=== PATIENT | female | born 2000 | race American Indian/Alaskan Native ===

== ENCOUNTER 2019-02-04 14:29 | Inpatient (IN) | payer MEDICAID ==
[2019-02-04] MEDS ORDERED: LACTATED RINGERS 1,000 ML ONE (15:00)
[2019-02-04] MEDS ORDERED: PROMETHAZINE 25 MG RECT SUPP PR PRN ×2 (15:04→23:15)
[2019-02-04] MEDS ORDERED: BUTORPHANOL 2 MG/1 ML INJ IV PRN (15:04)
[2019-02-04] MEDS ORDERED: ePHEDrine SULFATE 50 MG/1 ML INJ IV PRN ×2 (15:04→17:58)
[2019-02-04] MEDS ORDERED: TERBUTALINE 1 MG/1 ML INJ SUB-Q PRN (15:04)
[2019-02-04] MEDS ORDERED: TERBUTALINE 1 MG/1 ML INJ IVP PRN (15:04)
[2019-02-04] MEDS ORDERED: ONDANSETRON 4 MG/2 ML INJ IV PRN ×2 (15:04→23:15)
[2019-02-04] MEDS ORDERED: LIDOCAINE (2%) 20 MG/1 ML VIAL 20 ML MDV INFILTRATI ONE (15:04)
[2019-02-04] MEDS ORDERED: fentaNYL 100 MCG/2 ML INJ IV PRN (15:04)
[2019-02-04] MEDS ORDERED: MINERAL OIL 30 ML ORAL LIQD PO PRN (15:04)
[2019-02-04] MEDS ORDERED: NALOXONE 0.4 MG/1 ML INJ IV PRN ×2 (15:04→23:15)
--- NOTE | 2019-02-04 15:14 | History and Physical Report ---
History of Present Illness Date of examination: 02/04/19 Date of admission: Here for contractions Chief complaint: contractions History of present illness: This is a 18 yo at 40 weeks her3e for contractions. patient noted to be 4cm. GBS neg. Hx of chlamydia and gonorrhea. Marva neg Past History Past Medical History: no pertinent history Past Surgical History: no surgical history Family/Genetic History: none Social history: no significant social history, single. denies: smoking, alcohol abuse, prescription drug abuse - Obstetrical History Expected Date of Delivery: 01/30/19 Actual Gestation: 40 Week(s) 5 Day(s) : 1 Para: 0 Hx # Term Pregnancies: 0 Number of Pregnancies: 0 Spontaneous Abortions: 0 Induced : 0 Number of Living Children: 1 Medications and Allergies Allergies Allergy/AdvReac Type Severity Reaction Status Date / Time No Known Allergies Allergy Unverified 02/02/19 07:59 Home Medications Medication Instructions Recorded Confirmed Last Taken Type No.137/Iron/Folic Acd 1 each PO DAILY 02/04/19 02/04/19 02/04/19 History [[facility] Tablet] Active Meds: Active Medications Butorphanol Tartrate (Stadol) 1 mg IV Q2H PRN PRN Reason: Pain, Moderate (4-6) Ephedrine Sulfate (Ephedrine Sulfate) 10 mg IV Q2M PRN PRN Reason: Hypotension Fentanyl (Sublimaze) 100 mcg IV Q2H PRN PRN Reason: Labor Pain Oxytocin/Sodium Chloride (Pitocin/Ns 20 Unit/1000ml Drip) 20 units in 1,000 mls @ 125 mls/hr IV DIRECT PIERRE Oxytocin/Sodium Chloride (Pitocin/Ns 30 Unit/500ml) 30 units in 500 mls @ 1 mls/hr IV TITR PIERRE; Protocol Oxytocin/Sodium Chloride (Pitocin/Ns 30 Unit/500ml) 30 units in 500 mls @ 0 mls/hr IV TITR PIERRE; Protocol Lactated Ringer's (Lactated Ringers) 1,000 mls @ 125 mls/hr IV DIRECT PIERRE Lidocaine (Xylocaine 2%) 20 ml INFILTRATI ONCE ONE Stop: 02/04/19 15:05 Mineral Oil (Mineral Oil) 30 ml PO QHS PRN PRN Reason: Constipation Naloxone HCl (Naloxone) 0.1 mg IV Q2MIN PRN PRN Reason: Res Rate </= 8 or 02 SAT < 92% Ondansetron HCl (Zofran) 4 mg IV Q8H PRN PRN Reason: Nausea And Vomiting Promethazine HCl (Phenergan) 25 mg OK Q6H PRN PRN Reason: N/V if unable to take po Terbutaline Sulfate (Brethine) 0.25 mg SUB-Q ONCE PRN PRN Reason: Hyperstimulation/Hypertonicity Terbutaline Sulfate (Brethine) 0.25 mg IVP ONCE PRN PRN Reason: Hyperstimulation/Hypertonicity Review of Systems All systems: negative - Vital Signs Vital signs: Vital Signs Pulse BP Pulse Ox 97 H 132/81 98 02/04/19 14:51 02/04/19 14:51 02/04/19 14:51 Temp Pulse Resp BP Pulse Ox 78 132/81 100 02/04/19 15:06 02/04/19 14:51 02/04/19 15:06 - Physical Exam Breasts: Positive: normal Cardiovascular: Regular rate, Normal S1 Lungs: Positive: Clear to auscultation, Normal air movement Abdomen: Positive: normal appearance, soft, normal bowel sounds. Negative: distention, tenderness, guarding Genitourinary (Female): Positive: normal external genitalia, normal perenium Vagina: Positive: normal moisture Uterus: Positive: normal size, normal contour Anus/Rectum: Positive: normal perianal skin Extremities: Positive: normal Deep Tendon Reflex Grade: Normal +2 - Obstetrical FHR: category 1 Cervical Dilatation: 4 Uterine Contraction Pattern: Regular Uterine Tone Measurement Phase: Contraction Uterine Contraction Intensity: Moderate Results All other labs normal. Assessment and Plan A/P HD#1 IUP 40+5 weeks GBS neg Active labor IVF, labs offer epidural expect vaginal delivery
[2019-02-04 15:38] LABS: Basophils % (Auto) 0.3 % (0.0-1.8); Eosinophils # (Auto) 0.2 K/mm3 (0.0-0.4); Eosinophils % (Auto) 2.1 % (0.0-4.3); Hemoglobin 13.4 gm/dl (10.1-14.3); Lymphocytes # (Auto) 1.2 K/mm3 (1.2-5.4); Lymphocytes % (Auto) 12.8 % (13.4-35.0); Mean Corpuscular HGB Conc 34 % (30-34); Mean Corpuscular Volume 92 fl (79-97); Monocytes # (Auto) 0.9 K/mm3 (0.0-0.8); Monocytes % (Auto) 10.2 % (0.0-7.3); Red Blood Count 4.32 M/mm3 (3.65-5.03); Red Cell Distribution Width 13.9 % (13.2-15.2)
[2019-02-04 15:41] LABS: Platelet Count 172 K/mm3 (140-440)
[2019-02-04] MEDS ORDERED: OXYTOCIN 20 UNIT/1000ML DRIP 20 UNITS/1,000 ML BAG IV SCH (16:00)
[2019-02-04] MEDS ORDERED: LACTATED RINGERS 1,000 ML IV SCH (16:00)
[2019-02-04] MEDS ORDERED: OXYTOCIN DRIP 30 UNITS/500 ML BAG IV SCH ×2 (16:00)
--- NOTE | 2019-02-04 17:57 | Anesthesia Consultation ---
Anesthesia Consult and Med Hx Date of service: 02/04/19 - Airway Anesthetic Teeth Evaluation: Good ROM Head & Neck: Adequate Mental/Hyoid Distance: Adequate Mallampati Class: Class II Intubation Access Assessment: Good - Pulmonary Exam CTA: Yes - Cardiac Exam Cardiac Exam: RRR - Pre-Operative Health Status ASA Pre-Surgery Classification: ASA2, Emergency Proposed Anesthetic Plan: Epidural - Pulmonary Hx Asthma: No COPD: No Hx Pneumonia: No - Cardiovascular System Hx Hypertension: No - Central Nervous System Hx Seizures: No Hx Psychiatric Problems: No - Endocrine Hx Renal Disease: No Hx End Stage Renal Disease: No Hx Hypothyroidism: No Hx Hyperthyroidism: No - Hematic Hx Anemia: No Hx Sickle Cell Disease: No - Other Systems Hx Alcohol Use: No
[2019-02-04] MEDS ORDERED: NALOXONE 2 MG/2 ML INJ IV PRN (17:58)
[2019-02-04] MEDS ORDERED: fentaNYL-BUPIV 2 MCG/ML-0.125% 200 MCG/100 ML BAG EPIDURAL SCH ×2 (18:00→23:45)
[2019-02-04] MEDS ORDERED: BUPIVACAINE/PF (0.25%) 2.5 MG/ML 10 ML VIAL INFILTRATI ONE (18:41)
[2019-02-04] MEDS ORDERED: METOCLOPRAMIDE 10 MG/2 ML INJ IV NR (21:35)
[2019-02-04] MEDS ORDERED: FAMOTIDINE 20 MG/2 ML INJ IV ONE (21:35)
[2019-02-04] MEDS ORDERED: ceFAZolin/STERILE WATER 2 GM/20 ML SYRINGE IV NR (21:35)
[2019-02-04] MEDS ORDERED: BICITRA ORAL LIQD 30ML PO ONE (21:35)
[2019-02-04] MEDS ORDERED: ceFAZolin/Water 2 GM/20 ML 2 GM/20 ML SYRINGE IV ONE (21:35)
[2019-02-04] MEDS ORDERED: METOCLOPRAMIDE 10 MG/2 ML INJ ONE (21:36)
[2019-02-04] MEDS ORDERED: BICITRA ORAL LIQD 30ML ONE (21:36)
[2019-02-04] MEDS ORDERED: LIDOCAINE 2%/EPINEPHRINE 1:200,000 VIAL (20 ML) INFILTRATI ONE (21:40)
[2019-02-04] MEDS ORDERED: DEXMEDETOMIDINE 200 MCG/2 ML VIAL IV ONE (21:44)
[2019-02-04] MEDS ORDERED: ONDANSETRON 4 MG/2 ML INJ ONE (22:18)
[2019-02-04] MEDS ORDERED: KETOROLAC 30 MG/1 ML INJ ONE (22:18)
[2019-02-04] MEDS ORDERED: diphenhydrAMINE 50 MG/ML VIAL ONE (22:18)
[2019-02-04] MEDS ORDERED: HYDROmorphone 1 MG/1 ML INJ ONE (22:59)
[2019-02-04] MEDS ORDERED: HYDROmorphone 1 MG/1 ML INJ IV PRN (23:15)
[2019-02-04] MEDS ORDERED: PROMETHAZINE 25 MG TAB PO PRN (23:15)
--- NOTE | 2019-02-04 23:15 | Post Anesthesia Evaluation ---
- Post Anesthesia Evaluation Patient Participated: Yes Airway Patent: Yes Stable Respiratory Function: Yes Nausea/Vomiting: No Temp > 96.8F: Yes Pain Manageable: Yes Adequeate Hydration: Yes Anesthesia Complications: No Block Receding Appropriately: Yes Patient on Ventilator: No
--- NOTE | 2019-02-04 23:15 | Anesthesia Day of Surgery ---
Anesthesia Day of Surgery - Day of Surgery Patient Examined: Yes Patient H&P Reviewed: Yes Patient is NPO: Yes
--- NOTE | 2019-02-04 23:25 | Procedure Note ---
OB Delivery Note - Delivery Date of Delivery: 02/04/19 Surgeon: DENNISE MOSQUERA Estimated blood loss: other (700cc) - Section Preop diagnosis: nonreassuring FHR tracing Postop diagnosis: same section procedure: section Disposition: PACU Complications: none Narrative: see op note - A at 1 minute: 8 at 5 minutes: 9 Infant Gender: Male (9 pounds and 4 oz)
--- NOTE | 2019-02-04 23:29 | Operative Report ---
Operative Report Operative Report: DATE OF OPERATION: 02/04/19 PREOPERATIVE DIAGNOSES: 1. Intrauterine gestation at 40 weeks, in active labor, second stage. 2. NRFHT 3. Meconium POSTOPERATIVE DIAGNOSES: 1. Intrauterine gestation at 40 weeks, in active labor, second stage. 2. NRFHT 3. Meconium 4. Delivery of viable, pwlkr-ynj-svnvljzzpth-age male infant. OPERATION PERFORMED: Primary low transverse section. SURGEON: Chelsey Cantu MD ANESTHESIA: Epidural. COMPLICATIONS: None. ESTIMATED BLOOD LOSS: 700 mL. DRAINS: Dillard catheter to the bladder. SPECIMENS TO PATHOLOGY: Cord blood for routine testing. OPERATIVE FINDINGS: A viable male with Apgars of 8 and 9 and birthweight of 9 pounds 4 ounces was delivered from a cephalic presentation, persistent occiput posterior position. There was marked caput and molding present on the head. The cord contained 3 vessels. There was normal anterior fundal placenta. The amniotic fluid was clear. The uterus, fallopian tubes and ovaries were normal. DESCRIPTION OF OPERATION: The patient was brought to the operating suite in stable condition with epidural anesthesia on board and an indwelling catheter in place in the bladder. The patient was placed supine on the operating room table and rolled to her left side with a wedge. The abdomen was prepped and draped in standard fashion for section. After testing with forceps to assure an adequate anesthetic level, the surgery was commenced. We had counseled the patient extensively regarding the risks of the surgery including but not limited to stroke, embolus, phlebitis, pain, infection, hemorrhage, as well as injury to the infant and the internal organs such as the bowel, bladder, blood vessels, nerves, kidneys, ureters and pelvic organs. The patient was aware of the postoperative morbidity issues and recovery timeframes. The patient was aware she can form adhesions, which can result in obstruction of loop of bowel or ureter or chronic pain. She was aware that should she have hemorrhage and require blood transfusion, there was a small chance for exposure to hepatitis or HIV disease. With the scalpel, a Pfannenstiel skin incision was made. Dissection was carried down sharply through the subcutaneous tissues and fascia in a transverse plane with the scalpel, electrocautery and curved Camargo scissors. The fascia was sharply freed up superiorly and inferiorly from the underlying rectus muscles, which were bluntly and sharply divided. The peritoneum was entered carefully in a clear space with a curved hemostat. The peritoneal incision was then extended vertically with Metzenbaum scissors. A retractor and bladder blade were placed. A bladder flap was created by incising transversely through the peritoneum and vesicouterine fold and then bluntly dissecting the bladder distally. With the scalpel, a low transverse hysterotomy was commenced. The serosa and myometrium were scored with the scalpel. The uterine cavity was actually entered bluntly with a curved hemostat. The uterine incision was then extended laterally with the test operator's fingers. An intrauterine hand was placed and the head of the was brought up out of the pelvis into the uterine incision. With fundal pressure, he was delivered without difficulty. The nasopharynx and oropharynx were suctioned. The cord was doubly clamped and transected. The was then handed off to the nursery personnel. Apgars were good at 8 and 9. A cord pH was obtained, which subsequently revealed a normal value. Further cord blood was collected for routine testing. Intravenous Pitocin and antibiotics were administered. The placenta was manually removed. The uterine cavity was then curetted with a dry sponge and freed of the remaining membranes. The edges of the uterine incision were grasped with Torres clamps. With the massage and the Pitocin, the uterus began to firm up normally. The uterine incision was then closed in 2 layers of 0 Vicryl sutures. The first suture was placed to the endometrium and myometrium. The second suture was placed through the endopelvic fascia and also reincorporated the bladder flap peritoneum. Peritoneal lavage was then performed. The pelvis and gutters were irrigated and suctioned and cleared of all blood and clots and amniotic fluid. The uterine incision was reinspected to assure hemostasis. The uterus, tubes and ovaries were inspected and were normal. Once we were satisfied with the hemostasis, attention was turned to closure of the abdominal incision. The peritoneum, muscles and fascia were closed in layers using 0-Vicryl sutures. The subcutaneous tissue was closed with 3-0 plain sutures. The skin was closed with a subcuticular suture of 4-0 Vicryl followed by benzoin, Steri-Strips and a Telfa dressing. The patient was moved to the ecovery room in stable condition with the Dillard catheter draining clear urine. Instruments, sponge and needle counts were reported as correct. Estimated blood loss was 700 mL. There were no complications.
[2019-02-05] MEDS: HYDROmorphone 1 MG/1 ML INJ IV PRN ×2 (01:38→07:26)
[2019-02-05] MEDS ORDERED: SENNOSIDES 8.6 MG TAB PO PRN (08:56)
[2019-02-05] MEDS ORDERED: ACETAMINOPHEN 325 MG TAB PO PRN (08:56)
[2019-02-05] MEDS ORDERED: MORPHINE 2 MG/1 ML INJ IV PRN (08:56)
[2019-02-05] MEDS ORDERED: LANOLIN/ZINC/DIMETHICONE (LANSINOH) 7 GM TP PRN (08:56)
[2019-02-05] MEDS ORDERED: HYDROCORTISONE 25 MG RECTAL SUPP PR PRN (08:56)
[2019-02-05] MEDS ORDERED: NALOXONE 0.4 MG/1 ML INJ IV PRN (08:56)
[2019-02-05] MEDS ORDERED: MORPHINE 4 MG/1 ML INJ IV PRN (08:56)
[2019-02-05] MEDS ORDERED: MAGNESIUM HYDROXIDE (MOM) ORAL LIQD UDC PO PRN (08:56)
[2019-02-05] MEDS ORDERED: SIMETHICONE 80 MG CHEW TAB PO PRN (08:56)
[2019-02-05] MEDS ORDERED: WITCH HAZEL/ GLYCERIN PAD TP PRN (08:56)
[2019-02-05] MEDS ORDERED: HYDROcodone/ACETAMINOPHEN 5-325 MG TAB PO PRN (08:56)
[2019-02-05] MEDS ORDERED: KETOROLAC 30 MG/1 ML INJ IV PRN ×2 (08:56)
[2019-02-05] MEDS ORDERED: OXYTOCIN 20 UNIT/1000ML DRIP 20 UNITS/1,000 ML BAG IV SCH (09:00)
--- NOTE | 2019-02-05 11:27 | Progress Note ---
Assessment and Plan A/P POD 1 NRFHT doing well VSS routine PP care Subjective - Subjective Date of service: 02/05/19 Principal diagnosis: s/p for NRFHT Interval history: This is a 18 yo at 40 weeks her3e for contractions. patient noted to be 4cm. GBS neg. Hx of chlamydia and gonorrhea. Marva neg Patient reports: appetite normal, voiding normally, pain well controlled, flatus [place]: doing well Objective - Vital Signs Latest vital signs: Vital Signs Temp Pulse Resp BP Pulse Ox 02/05/19 07:27 99.3 F 85 16 118/81 97 02/05/19 05:31 98.5 F 81 18 108/71 97 02/05/19 01:45 98.9 F 87 18 114/61 97 02/05/19 00:15 99.5 F 86 17 119/59 98 02/05/19 00:05 82 17 114/68 98 02/04/19 23:50 80 13 115/67 99 02/04/19 23:35 113 H 18 115/80 100 02/04/19 23:25 82 13 119/63 100 02/04/19 23:20 89 11 L 120/73 100 02/04/19 23:15 99.4 F 78 12 116/62 100 02/04/19 23:10 99.4 F 72 16 118/48 100 02/04/19 21:40 76 84 02/04/19 21:35 125 H 97 02/04/19 21:30 87 96 02/04/19 21:28 67 118/71 02/04/19 21:25 63 96 02/04/19 21:24 51 L 73 L 02/04/19 21:19 64 100 02/04/19 21:16 87 45 L 02/04/19 21:14 68 100 02/04/19 21:09 73 100 02/04/19 21:00 68 100 02/04/19 20:59 74 87 02/04/19 20:56 75 104/68 02/04/19 20:55 70 100 02/04/19 20:50 73 100 02/04/19 20:45 74 100 02/04/19 20:40 70 100 02/04/19 20:35 75 100 02/04/19 20:30 74 100 02/04/19 20:27 70 101/60 89 02/04/19 20:25 68 100 02/04/19 20:20 66 100 02/04/19 20:18 54 L 90 02/04/19 20:15 78 99 02/04/19 20:10 99 H 100 02/04/19 20:05 97 H 100 02/04/19 20:00 69 100 02/04/19 19:57 72 112/69 02/04/19 19:55 69 100 02/04/19 19:50 86 99 02/04/19 19:45 80 100 02/04/19 19:40 76 100 02/04/19 19:34 72 100 02/04/19 19:29 80 100 02/04/19 19:26 83 120/69 02/04/19 19:24 82 121/69 100 02/04/19 19:22 75 124/74 02/04/19 19:20 82 131/83 02/04/19 19:19 89 100 02/04/19 19:18 89 125/89 02/04/19 19:16 83 117/81 02/04/19 19:14 85 121/80 100 02/04/19 19:12 74 122/79 02/04/19 19:10 77 118/77 02/04/19 19:09 79 99 02/04/19 19:08 76 129/74 02/04/19 19:06 91 H 139/82 02/04/19 19:04 85 137/79 99 02/04/19 19:02 74 127/71 02/04/19 19:00 76 125/74 02/04/19 18:59 83 99 02/04/19 18:58 84 132/85 02/04/19 18:56 83 124/79 02/04/19 18:55 98.3 F 14 02/04/19 18:54 79 88 02/04/19 18:51 91 02/04/19 18:49 92 H 100 02/04/19 18:47 83 141/87 100 02/04/19 17:22 86 117/77 02/04/19 16:54 98.1 F 16 02/04/19 15:41 88 100 02/04/19 15:36 100 H 100 19 15:31 93 H 100 02/04/19 15:26 94 H 100 02/04/19 15:21 90 100 02/04/19 15:16 92 H 100 02/04/19 15:11 92 H 100 02/04/19 15:06 78 100 02/04/19 15:01 94 H 100 02/04/19 14:56 92 H 99 02/04/19 14:51 97 H 132/81 98 Intake and Output 02/04/19 02/05/19 02/05/19 23:59 07:59 15:59 Intake Total 1500 240 480 Output Total 350 1000 Balance 1150 240 -520 Intake: IV 1500 Oral 240 480 Output: Urine 350 1000 Indwelling Catheter 1000 Uretheral (Dillard) 50 Other: Total, Intake Amount 120 480 Total, Output Amount 400 Estimated Blood Loss 700 - Exam Breasts: Present: normal Cardiovascular: Present: Regular rate, Normal S1 Lungs: Present: Clear to auscultation, Normal air movement Abdomen: Present: normal appearance, soft, normal bowel sounds. Absent: distention, tenderness, guarding Vulva: both: normal Uterus: Present: normal, firm, fundal height below umbilicus. Absent: bogginess, tenderness Extremities: Present: normal Deep Tendon Reflex Grade: Normal +2 Incision: Present: normal, dry, intact - Labs Labs: Abnormal lab results 02/04/19 Range/Units 15:15 Lymph % (Auto) 12.8 L (13.4-35.0) % [place] % (Auto) 10.2 H (0.0-7.3) % [place] # 0.9 H (0.0-0.8) K/mm3 Seg Neutrophils % 74.6 H (40.0-70.0) %
[2019-02-05] MEDS: FERROUS SULFATE 325 MG TAB PO SCH (11:28)
[2019-02-05] MEDS: PRENATAL VIT27-FE FUMARATE-FOLIC ACID VIT TAB PO SCH (11:28)
[2019-02-05] MEDS: oxyCODONE /ACETAMINOPHEN 5-325MG TAB PO PRN ×2 (13:09→20:11)
[2019-02-05] MEDS: IBUPROFEN 800 MG TAB PO PRN (15:44)
[2019-02-05 20:34] LABS: Hematocrit 33.2 % (30.3-42.9); Hemoglobin 11.3 gm/dl (10.1-14.3)
[2019-02-06] MEDS: IBUPROFEN 800 MG TAB PO PRN (00:29)
[2019-02-06] MEDS: oxyCODONE /ACETAMINOPHEN 5-325MG TAB PO PRN ×3 (02:35→19:49)
[2019-02-06] MEDS ORDERED: MEASLES, MUMPS & RUBELLA 12,500 UNIT/0.5 ML VACCINE SUB-Q ONE (08:57)
[2019-02-06] MEDS ORDERED: TETANUS,DIPH,PERTUSS(ACELL) VACCINE 0.5 ML SYRINGE IM ONE (08:57)
--- NOTE | 2019-02-06 09:33 | Progress Note ---
Assessment and Plan A/P POD 2 NRFHT doing well VSS routine PP care consider d/c home tomorrow Subjective - Subjective Date of service: 02/06/19 Principal diagnosis: s/p for NRFHT Interval history: This is a 18 yo at 40 weeks her3e for contractions. patient noted to be 4cm. GBS neg. Hx of chlamydia and gonorrhea. Marva neg Patient reports: appetite normal, voiding normally, pain well controlled, flatu s, ambulating normally : doing well Objective - Vital Signs Latest vital signs: Vital Signs Temp Pulse Resp BP Pulse Ox 02/06/19 07:25 98.0 F 76 20 123/57 96 02/05/19 22:44 98.4 F 72 20 100/57 100 02/05/19 20:11 18 02/05/19 16:11 98.3 F 92 H 20 113/73 94 02/05/19 11:42 99.7 F H 94 H 20 113/73 97 Intake and Output 02/05/19 02/06/19 02/06/19 23:59 07:59 15:59 Intake Total 600 240 Output Total 1000 Balance -400 240 Intake: Oral 600 240 Output: Urine 1000 Void 1000 Other: Total, Intake Amount 480 240 Total, Output Amount 700 # Voids Void 1 1 - Exam Breasts: Present: normal Cardiovascular: Present: Regular rate, Normal S1 Lungs: Present: Clear to auscultation, Normal air movement Abdomen: Present: normal appearance, soft, normal bowel sounds. Absent: distention, tenderness, guarding Vulva: both: normal Uterus: Present: normal, firm, fundal height below umbilicus. Absent: bogginess, tenderness Extremities: Present: normal Deep Tendon Reflex Grade: Dull/Diminished +1 Incision: Present: normal, intact
[2019-02-06] MEDS: FERROUS SULFATE 325 MG TAB PO SCH (12:53)
[2019-02-06] MEDS: PRENATAL VIT27-FE FUMARATE-FOLIC ACID VIT TAB PO SCH (18:03)
[2019-02-07] MEDS: IBUPROFEN 800 MG TAB PO PRN ×2 (00:23→06:26)
[2019-02-07] MEDS: FERROUS SULFATE 325 MG TAB PO SCH (08:28)
--- NOTE | 2019-02-07 08:31 | Progress Note ---
Assessment and Plan A: POD#3 s/p primary section at term P: Discharge today with follow up in 2 weeks for incision check Subjective - Subjective Date of service: 02/07/19 Principal diagnosis: s/p primary Interval history: No issues overnight. Patient reports: appetite normal, voiding normally, pain well controlled, flatus, ambulating normally, no bowel movement : doing well Objective - Vital Signs Latest vital signs: Vital Signs Temp Pulse Resp BP Pulse Ox 02/07/19 02:06 98.6 F 95 H 20 121/49 98 02/06/19 15:40 99.2 F 102 H 20 135/71 98 Intake and Output 02/06/19 02/07/19 02/07/19 22:59 06:59 14:59 Intake Total 240 Balance 240 Intake: Oral 240 Other: Total, Intake Amount 240 - Exam Breasts: Present: deferred Cardiovascular: Present: Regular rate Lungs: Present: Clear to auscultation Abdomen: Present: soft, normal bowel sounds. Absent: tenderness Uterus: Present: fundal height below umbilicus Extremities: Present: edema (trace) Incision: Present: intact
--- NOTE | 2019-02-07 08:34 | Discharge Summary ---
Providers - Providers Date of Admission: 02/04/19 16:10 Date of discharge: 02/07/19 Attending physician: DENNISE MOSQUERA MD Primary care physician: JOEL DUBON Hospitalization Reason for admission: active labor Delivery: Procedure: section, primary low transverse Procedure details: Please see operative report. Incision: intact Discharge diagnosis: IUP at term delivered baby: male Hospital course: Pt was admitted in active labor and ultimately delivered via primary section which she tolerated well. Her postoperative course was uncomplicated and she met discharge criteria on POD#3. She will follow up in 2 wks for incision check. Condition at discharge: Stable Disposition: DC-01 TO HOME OR SELFCARE - Discharge Diagnoses (1) S/P section Status: Acute (2) Morbid obesity Status: Acute (3) Term of male Status: Acute Plan - Discharge Medications Prescriptions: Ferrous Sulfate [Feosol 325 MG tab] 325 mg PO BID #30 tablet Ibuprofen [Motrin] 600 mg PO Q8H PRN #30 tablet PRN Reason: Pain oxyCODONE /ACETAMINOPHEN [Percocet 5/325] 1 tab PO Q6HR PRN #30 tablet PRN Reason: Pain - Provider Discharge Summary Activity: routine, no sex for 6 weeks, no heavy lifting 4 weeks, no strenuous exercise Diet: routine Instructions: routine Additional instructions: [] Smoking cessation referral if applicable(refer to patient education folder for contact #) [] Refer to [facility] Booklet Call your doctor immediately for: * Fever > 100.5 * Heavy vaginal bleeding ( >1 pad per hour) * Severe persistent headache * Shortness of breath * Reddened, hot, painful area to leg or breast * Drainage or odor from incision. * Keep incision clean and dry at all times and follow doctor's instructions regarding bathing/showering - Follow up plan Follow up: DENNISE MOSQUERA MD [Staff Physician] - 14 Days (Please schedule your son's circumcision before he is one month old. )
[2019-02-07] MEDS: oxyCODONE /ACETAMINOPHEN 5-325MG TAB PO PRN (14:00)
[2019-02-07 17:56] VITALS: BP 128/66
== END 2019-02-07 17:10 | disposition home or self-care (01) | DRG 766 ==
LOC: TRG 14:29 → LD 16:10 → OB 02-05 01:09
PROVIDERS: ADMIT Obstetrics & Gynecology; ATTEND Obstetrics & Gynecology
PROC: 10D00Z1 Extraction of Products of Conception, Low, Open Approach (ICD-10-PCS; principal; 2019-02-04)
PROC: 3E0234Z Introduction of Serum, Toxoid and Vaccine into Muscle, Percutaneous Approach (ICD-10-PCS; 2019-02-06)
DX: O76 Abnormality in fetal heart rate and rhythm complicating labor and delivery (principal); O99.214 Obesity complicating childbirth; O77.0 Labor and delivery complicated by meconium in amniotic fluid; E66.01 Morbid (severe) obesity due to excess calories; Z3A.40 40 weeks gestation of pregnancy; Z37.0 Single live birth; Z23 Encounter for immunization
CPT/HCPCS: 36415; 59025; 85014; 85018; 85025; 85027; 86850; 86900; 86901; G0378; J0690; J1170; J1200; J1885; J2270; J2405; J2590; J2765; J3010; J3490; J7120

== ENCOUNTER 2019-08-16 13:45 | Emergency (ER) | payer SELFPAY ==
[2019-08-16] MEDS ORDERED: IBUPROFEN 600 MG TAB PO ONE (14:12)
[2019-08-16] MEDS ORDERED: IBUPROFEN ORAL LIQD 100 MG/5 ML ORAL.LIQD PO ONE (14:15)
--- NOTE | 2019-08-16 15:17 | Emergency Department Report ---
ED ENT HPI - General Chief complaint: Sore Throat Stated complaint: SORE THROAT, EARACHE Time Seen by Provider: 08/16/19 15:12 Source: patient Mode of arrival: Ambulatory Limitations: No Limitations - History of Present Illness Initial comments: pt is a 19 yo female who presents to the ED with c/o sore throat and swollen tonsils that began 6 days ago. she has associated discomfort with swallowing and fever. she is able to tolerate her secretions and PO intake. she denies any n/v/d, no cough, no SOB. no sick contacts or recent travel. no PMHx. no all ergies to meds. LNMP: last week - Related Data Home Medications Medication Instructions Recorded Confirmed Last Taken No.137/Iron/Folic Acd 1 each PO DAILY 02/04/19 02/04/19 02/04/19 [[facility] Tablet] Previous Rx's Medication Instructions Recorded Last Taken Type Ferrous Sulfate [Feosol 325 MG tab] 325 mg PO BID #30 tablet 02/05/19 Unknown Rx Ibuprofen [Motrin] 600 mg PO Q8H PRN #30 tablet 02/05/19 Unknown Rx oxyCODONE /ACETAMINOPHEN [Percocet 1 tab PO Q6HR PRN #30 tablet 02/05/19 Unknown Rx 5/325] Amoxicillin [Trimox CAP] 500 mg PO BID 10 Days #20 capsule 08/16/19 Unknown Rx Benzocaine/Mentho [Cepacol X 1 each MM BID #1 packet 08/16/19 Unknown Rx Strength] Allergies Allergy/AdvReac Type Severity Reaction Status Date / Time No Known Allergies Allergy Verified 08/16/19 14:08 ED Dental HPI - General Chief complaint: Sore Throat Stated complaint: SORE THROAT, EARACHE Time Seen by Provider: 08/16/19 15:12 Source: patient Mode of arrival: Ambulatory Limitations: No Limitations - Related Data Home Medications Medication Instructions Recorded Confirmed Last Taken No.137/Iron/Folic Acd 1 each PO DAILY 02/04/19 02/04/19 02/04/19 [[facility] Tablet] Previous Rx's Medication Instructions Recorded Last Taken Type Ferrous Sulfate [Feosol 325 MG tab] 325 mg PO BID #30 tablet 02/05/19 Unknown Rx Ibuprofen [Motrin] 600 mg PO Q8H PRN #30 tablet 02/05/19 Unknown Rx oxyCODONE /ACETAMINOPHEN [Percocet 1 tab PO Q6HR PRN #30 tablet 02/05/19 Unknown Rx 5/325] Amoxicillin [Trimox CAP] 500 mg PO BID 10 Days #20 capsule 08/16/19 Unknown Rx Benzocaine/Mentho [Cepacol X 1 each MM BID #1 packet 08/16/19 Unknown Rx Strength] Allergies Allergy/AdvReac Type Severity Reaction Status Date / Time No Known Allergies Allergy Verified 08/16/19 14:08 ED Review of Systems ROS: Stated complaint: SORE THROAT, EARACHE Other details as noted in HPI Comment: All other systems reviewed and negative ED Past Medical Hx - Past Medical History Previous Medical History?: No Hx Hypertension: No Hx Congestive Heart Failure: No Hx Diabetes: No Hx Deep Vein Thrombosis: No Hx Renal Disease: No Hx Sickle Cell Disease: No Hx Seizures: No Hx Asthma: No Hx COPD: No - Surgical History Past Surgical History?: No - Social History Smoking Status: Current Every Day Smoker Substance Use Type: Marijuana - Medications Home Medications: Home Medications Medication Instructions Recorded Confirmed Last Taken Type No.137/Iron/Folic Acd 1 each PO DAILY 02/04/19 02/04/19 02/04/19 History [[facility] Tablet] Ferrous Sulfate [Feosol 325 MG tab] 325 mg PO BID #30 tablet 02/05/19 Unknown Rx Ibuprofen [Motrin] 600 mg PO Q8H PRN #30 tablet 02/05/19 Unknown Rx oxyCODONE /ACETAMINOPHEN [Percocet 1 tab PO Q6HR PRN #30 tablet 02/05/19 Unknown Rx 5/325] Amoxicillin [Trimox CAP] 500 mg PO BID 10 Days #20 capsule 08/16/19 Unknown Rx Benzocaine/Mentho [Cepacol X 1 each MM BID #1 packet 08/16/19 Unknown Rx Strength] ED Physical Exam - General Limitations: No Limitations General appearance: alert, in no apparent distress - Head Head exam: Present: atraumatic, normocephalic - Eye Eye exam: Present: normal appearance - ENT ENT exam: Present: mucous membranes moist, TM's normal bilaterally, normal external ear exam, other (mild bilateral tonsilar hypertrophy, exudates present on bilateral tonsils, uvula is midline, no uvular deviation or edema, no muffled voice, no trismus, no tongue elevation, no submandibular swelling) - Respiratory Respiratory exam: Present: normal lung sounds bilaterally. Absent: respiratory distress, wheezes, rales, rhonchi, stridor, chest wall tenderness, accessory muscle use, decreased breath sounds, prolonged expiratory - Cardiovascular Cardiovascular Exam: Present: regular rate, normal rhythm, normal heart sounds. Absent: systolic murmur, diastolic murmur, rubs, gallop - Neurological Exam Neurological exam: Present: alert, oriented X3 - Psychiatric Psychiatric exam: Present: normal affect, normal mood - Skin Skin exam: Present: warm, dry, intact ED Course Vital Signs 08/16/19 08/16/19 14:04 15:40 Temperature 101.2 F H 98.0 F Pulse Rate 104 H 82 Respiratory 14 20 Rate Blood Pressure 152/78 124/69 O2 Sat by Pulse 99 96 Oximetry ED Medical Decision Making - Medical Decision Making pt is a 19 yo female who presents to the ED with c/o sore throat and swollen tonsils that began 6 days ago. she has associated discomfort with swallowing and fever. she is able to tolerate her secretions and PO intake. she denies any n/v/d, no cough, no SOB. no sick contacts or recent travel. no PMHx. no allergies to meds. LNMP: last week. Vitals with elevated heart rate and temperature which improved upon ibuprofen administration. On exam:mild bilateral tonsilar hypertrophy, exudates present on bilateral tonsils, uvula is midline, no uvular deviation or edema, no muffled voice, no trismus, no tongue elevation, no submandibular swelling. Examination consistent with tonsillitis. rapid strep is negative, throat culture was sent. Patient given prescription for amoxicillin and Cepacol. Advised patient please take medication as prescribed. please increase your fluid intake. alternate tylenol then ibuprofen every 6 hours as needed for fever. throw away your toothbrush. do not drink after others or allow others to drink after you. follow up with a primary care doctor for reexamination. return to the emergency room immediately for any new or worsening symptoms. - Differential Diagnosis Tonsillitis, strep throat, peritonsillar abscess, mono, viral syndrome Critical care attestation.: If time is entered above; I have spent that time in minutes in the direct care of this critically ill patient, excluding procedure time. ED Disposition Clinical Impression: Tonsillitis Disposition: TO HOME OR SELFCARE Is pt being admited?: No Does the pt Need Aspirin: No Condition: Stable Instructions: Tonsillitis (ED) Additional Instructions: please take medication as prescribed. please increase your fluid intake. alternate tylenol then ibuprofen every 6 hours as needed for fever. throw away your toothbrush. do not drink after others or allow others to drink after you. follow up with a primary care doctor for reexamination. return to the emergency room immediately for any new or worsening symptoms. Prescriptions: Benzocaine/Mentho [Cepacol X Strength] 1 each MM BID #1 packet Amoxicillin [Trimox CAP] 500 mg PO BID 10 Days #20 capsule Referrals: MG DODSON MD [Staff Physician] - 3-5 Days [facility] [Provider Group] - 3-5 Days [facility] [Outside] - 3-5 Days Time of Disposition: 15:18 Print Language: EAST TIMORESE
[2019-08-16 15:43] VITALS: BP 124/69
== END 2019-08-16 15:44 | disposition home or self-care (01) ==
LOC: ED 13:45
DX: J03.90 Acute tonsillitis, unspecified (principal)
CPT/HCPCS: 87116; 87430; 99283

== ENCOUNTER 2019-09-25 17:03 | Emergency (ER) | payer MEDICAID ==
--- NOTE | 2019-09-25 18:58 | Event Note ---
ED Screening Note Date of service: 09/25/19 Time: 18:12 ED Screening Note: 19-year-old -[place] female presents to the emergency room for vaginal bleeding after having a confirmed on 09/13/2019. Patient reports her last menstrual period was 08/07/2019. 2 para 1. Having some abdominal pain. This initial assessment/diagnostic orders/clinical plan/treatment(s) is/are subject to change based on patients health status, clinical progression and re- assessment by fellow clinical providers in the ED. Further treatment and workup at subsequent clinical providers discretion. Patient/guardian urged not to elope from the ED as their condition may be serious if not clinically assessed and managed. Initial orders include:
[2019-09-25 19:02] LABS: Basophils % (Auto) 0.4 % (0.0-1.8); Eosinophils # (Auto) 0.1 K/mm3 (0.0-0.4); Eosinophils % (Auto) 1.8 % (0.0-4.3); Hematocrit 39.2 % (30.3-42.9); Hemoglobin 12.9 gm/dl (10.1-14.3); Lymphocytes # (Auto) 1.7 K/mm3 (1.2-5.4); Lymphocytes % (Auto) 25.4 % (13.4-35.0); Mean Corpuscular HGB Conc 33 % (30-34); Mean Corpuscular Volume 90 fl (79-97); Monocytes # (Auto) 0.4 K/mm3 (0.0-0.8); Monocytes % (Auto) 5.9 % (0.0-7.3); Platelet Count 315 K/mm3 (140-440); Red Blood Count 4.36 M/mm3 (3.65-5.03); Red Cell Distribution Width 14.9 % (13.2-15.2)
[2019-09-25 19:22] LABS: BUN/Creatinine Ratio 7; Blood Urea Nitrogen 5 mg/dL (7-17); Calcium 9.3 mg/dL (8.4-10.2); Hemolysis Index 26
[2019-09-25 21:22] LABS: Bacteria,Urine 1+ /HPF (Negative); Bilirubin,Urine NEG (Negative); Blood,Urine LG (Negative); Color,Urine Yellow (Yellow); Protein,Urine <15 mg/dL mg/dL (Negative); Urobilinogen,Urine < 2.0 mg/dL (<2.0)
[2019-09-25 21:24] LABS: RBC,Urine > 182.0 /HPF (0.0-6.0)
[2019-09-25] MEDS ORDERED: ACETAMINOPHEN 500 MG TAB PO ONE (22:14)
--- NOTE | 2019-09-25 23:50 | Ultrasound Report ---
TRANSABDOMINAL AND TRANSVAGINAL OB PELVIC ULTRASOUND INDICATION / CLINICAL INFORMATION: Moderate vaginal bleeding. Pelvic pain. COMPARISON: None available. FINDINGS: Transabdominal: The uterus is suboptimally imaged. The ovaries are not seen. There is no evidence of adnexal mass or free fluid. Images of the urinary bladder are normal. Transvaginal: The uterus measures 8.9 x 4.8 x 5.9 cm. The endometrial stripe measures 1.3 cm AP. No I UP is seen. The right ovary measures 1.8 x 1.5 x 2.8 cm and the left ovary 2.4 x 1.3 x 2.4 cm. There is normal bl ood flow to both ovaries on Doppler exam. There is a mild amount of free fluid in the cul-de-sac and right adnexa. I do not identify an extraovarian mass. IMPRESSION: No evidence of intrauterine or extrauterine . Signer Name: Nicolás Dos Santos MD Signed: 09/25/2019 11:45 PM Workstation Name: [id number]
--- NOTE | 2019-09-26 00:11 | Emergency Department Report ---
ED Female HPI - General Chief complaint: Urogenital-Female Stated complaint: BLOOD IN URINE,PREG Source: patient Mode of arrival: Ambulatory Limitations: No Limitations - History of Present Illness Initial comments: Patient is a A0 19-year-old -Maldivian female who is approximately 5 weeks gestation and who presents to the ED with complaint of acute onset suprapubic pressure and pain, heavy vaginal bleeding for the last 12 hours. Patient states that she has been expelling large blood clots the last 1 being while she was already in the ED and waiting. Patient states that the pain has been crampy since the onset of the symptoms. Patient denies fever, chills, nausea, vomiting, dysuria, urinary frequency and urgency, dizziness, syncope, back pain, chest pain or shortness of breath, diarrhea, cough, sore throat or vaginal discharge and traumatic injury. MD Complaint: vaginal bleeding, pelvic pain -: Sudden, hour(s) (12) Location: suprapubic, other (vaginal) Radiation: suprapubic Severity: severe Severity scale (0 -10): 8 Quality: cramping, sharp Consistency: constant Improves with: none Worsens with: none Are you Now?: Yes (5 weeks gestation) Last Menstrual Period: 08/17/19 EDC: 05/23/20 Associated Symptoms: denies other symptoms, vaginal bleeding, abdominal pain, loss of appetite. denies: vaginal discharge, nausea/vomiting, fever/chills, headaches, dysuria, hematuria, rash, seizure, shortness of breath, syncope, other - Related Data Sexually active: Yes : 2 Para: 1 A: 0 Home Medications Medication Instructions Recorded Confirmed Last Taken No.137/Iron/Folic Acd 1 each PO DAILY 02/04/19 02/04/19 02/04/19 [[facility] Tablet] Previous Rx's Medication Instructions Recorded Last Taken Type Ferrous Sulfate [Feosol 325 MG tab] 325 mg PO BID #30 tablet 02/05/19 Unknown Rx Ibuprofen [Motrin] 600 mg PO Q8H PRN #30 tablet 02/05/19 Unknown Rx oxyCODONE /ACETAMINOPHEN [Percocet 1 tab PO Q6HR PRN #30 tablet 02/05/19 Unknown Rx 5/325] Amoxicillin [Trimox CAP] 500 mg PO BID 10 Days #20 capsule 08/16/19 Unknown Rx Benzocaine/Mentho [Cepacol X 1 each MM BID #1 packet 08/16/19 Unknown Rx Strength] Acetaminophen [Tylenol] 500 mg PO Q6HR PRN #30 tablet 09/26/19 Unknown Rx Allergies Allergy/AdvReac Type Severity Reaction Status Date / Time No Known Allergies Allergy Verified 08/16/19 14:08 ED Review of Systems ROS: Stated complaint: BLOOD IN URINE,PREG Other details as noted in HPI Constitutional: denies: chills, fever Eyes: denies: eye pain, eye discharge, vision change ENT: denies: ear pain, throat pain Respiratory: denies: cough, shortness of breath, wheezing Cardiovascular: denies: chest pain, palpitations Endocrine: no symptoms reported Gastrointestinal: abdominal pain (Suprapubic pain). denies: nausea, diarrhea Genitourinary: abnormal menses (Heavy vaginal bleeding). denies: urgency, dysuria, discharge Musculoskeletal: denies: back pain, joint swelling, arthralgia Skin: denies: rash, lesions Neurological: denies: headache, weakness, paresthesias Psychiatric: denies: anxiety, depression Hematological/Lymphatic: denies: easy bleeding, easy bruising ED Past Medical Hx - Past Medical History Previous Medical History?: No Hx Hypertension: No Hx Congestive Heart Failure: No Hx Diabetes: No Hx Deep Vein Thrombosis: No Hx Renal Disease: No Hx Sickle Cell Disease: No Hx Seizures: No Hx Asthma: No Hx COPD: No - Surgical History Past Surgical History?: No - Social History Smoking Status: Current Every Day Smoker Substance Use Type: Alcohol - Medications Home Medications: Home Medications Medication Instructions Recorded Confirmed Last Taken Type No.137/Iron/Folic Acd 1 each PO DAILY 02/04/19 02/04/19 02/04/19 History [[facility] Tablet] Ferrous Sulfate [Feosol 325 MG tab] 325 mg PO BID #30 tablet 02/05/19 Unknown Rx Ibuprofen [Motrin] 600 mg PO Q8H PRN #30 tablet 02/05/19 Unknown Rx oxyCODONE /ACETAMINOPHEN [Percocet 1 tab PO Q6HR PRN #30 tablet 02/05/19 Unknow n Rx 5/325] Amoxicillin [Trimox CAP] 500 mg PO BID 10 Days #20 capsule 08/16/19 Unknown Rx Benzocaine/Mentho [Cepacol X 1 each MM BID #1 packet 08/16/19 Unknown Rx Strength] Acetaminophen [Tylenol] 500 mg PO Q6HR PRN #30 tablet 09/26/19 Unknown Rx ED Physical Exam - General Limitations: No Limitations General appearance: alert, in no apparent distress - Head Head exam: Present: atraumatic, normocephalic, normal inspection - Eye Eye exam: Present: normal appearance, PERRL, EOMI Pupils: Present: normal accommodation - ENT ENT exam: Present: normal exam, normal orophraynx, mucous membranes moist, TM's normal bilaterally, normal external ear exam - Neck Neck exam: Present: normal inspection, full ROM - Respiratory Respiratory exam: Present: normal lung sounds bilaterally. Absent: respiratory distress, wheezes, rales, rhonchi, chest wall tenderness, decreased breath sounds - Cardiovascular Cardiovascular Exam: Present: regular rate, normal rhythm, normal heart sounds. Absent: systolic murmur, diastolic murmur, rubs, gallop - GI/Abdominal GI/Abdominal exam: Present: soft, normal bowel sounds. Absent: tenderness, guarding, rebound, hyperactive bowel sounds, hypoactive bowel sounds - Bi-manual exam: Present: other (Female RN rag baler present, pelvic exam deferred) - Extremities Exam Extremities exam: Present: normal inspection, full ROM, normal capillary refill - Back Exam Back exam: Present: normal inspection, full ROM. Absent: tenderness, muscle spasm, paraspinal tenderness, vertebral tenderness - Neurological Exam Neurological exam: Present: alert, oriented X3, CN II-XII intact, normal gait, reflexes normal - Psychiatric Psychiatric exam: Present: normal affect, normal mood - Skin Skin exam: Present: warm, dry, intact, normal color. Absent: rash ED Course Vital Signs 09/25/19 17:12 Temperature 98.1 F Pulse Rate 79 Respiratory 20 Rate Blood Pressure 117/57 O2 Sat by Pulse 100 Oximetry ED Medical Decision Making - Lab Data Result diagrams: 09/25/19 18:37 09/25/19 18:37 - Radiology Data Radiology results: report reviewed, image reviewed Findings [facility] [address] [place] [address] Ultrasound Report Signed Patient: RENE HERNANDES MR#: [id number] : 2000 Acct:[id number] Age/Sex: 19 / F ADM Date: 09/25/19 Loc: ED Attending Dr: Ordering Physician: VERA RASMUSSEN Date of Service: 09/25/19 Procedure(s): OB transvaginal Accession Number(s): [id number] cc: VERA RASMUSSEN TRANSABDOMINAL AND TRANSVAGINAL OB PELVIC ULTRASOUND INDICATION / CLINICAL INFORMATION: Moderate vaginal bleeding. Pelvic pain. COMPARISON: None available. FINDINGS: Transabdominal: The uterus is suboptimally imaged. The ovaries are not seen. There is no evidence of adnexal mass or free fluid. Images of the urinary bladder are normal. Transvaginal: The uterus measures 8.9 x 4.8 x 5.9 cm. The endometrial stripe measures 1.3 cm AP. No IUP is seen. The right ovary measures 1.8 x 1.5 x 2.8 cm and the left ovary 2.4 x 1.3 x 2.4 cm. There is normal blood flow to both ovaries on Doppler exam. There is a mild amount of free fluid in the cul-de-sac and right adnexa. I do not identify an extraovarian mass. IMPRESSION: No evidence of intrauterine or extrauterine . Signer Name: Nicolás Dos Santos MD Signed: 09/25/2019 11:45 PM Workstation Name: [id number] Transcribed By: RT Dictated By: Nicolás Dos Santos MD Electronically Authenticated By: Nicolás Dos Santos MD Signed Date/Time: 09/25/192344 DD/ 41 TD/TT: - Medical Decision Making This is a A0 19-year-old -Maldivian female who is approximately 5 weeks gestation and who presents to the ED with complaint of acute onset suprapubic pressure and pain, heavy vaginal bleeding for the last 12 hours. Patient states that she has been expelling large blood clots the last 1 being while she was already in the ED and waiting. Patient states that the pain has been crampy since the onset of the symptoms. In the ED, patient is alert and oriented x3 and is not in distress. Lab test results were reviewed and showed hCG quant of 309.3 with large amount of blood in the urine. The rest of the lab test results are nonactionable. Patient was treated for pain in the ED with Tylenol. Transvaginal ultrasound showed no evidence of intrauterine or extrauterine . Patient was discharged home and advised to maintain complete pelvic rest and to return to the ED within 48 hours for recheck of hCG quant to confirm the viability of the . Patient was meanwhile advised to maintain a complete pelvic rest, devoid of any physical activity or heavy lifting or sexual activity. Patient was advised to return to the ED immediately if symptoms get worse. - Differential Diagnosis ectopic preg; threatened miscarriage; ovarian cyst; UTI; Subchorionic bleed Critical care attestation.: If time is entered above; I have spent that time in minutes in the direct care of this critically ill patient, excluding procedure time. ED Disposition Clinical Impression: Threatened miscarriage, Vaginal bleeding in Disposition: TO HOME OR SELFCARE Is pt being admited?: No Does the pt Need Aspirin: No Condition: Stable Instructions: Threatened Miscarriage (ED), Abdominal Pain in (ED) Additional Instructions: Maintain a complete pelvic rest devoid of any physical or strenuous activities or sexual activity. Take medication as needed for pain, drink plenty of fluids. 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 Otherwise return to the ED immediately if your symptoms get worse. Prescriptions: Acetaminophen [Tylenol] 500 mg PO Q6HR PRN #30 tablet PRN Reason: Pain , Severe (7-10) Referrals: JOEL DUBON MD [Staff Physician] - 3-5 Days Time of Disposition: 00:09 Print Language: UPPER [place]ORBI[place]
[2019-09-26 00:27] VITALS: BP 120/72
== END 2019-09-26 00:27 | disposition home or self-care (01) ==
LOC: ED 17:03
DX: O20.0 Threatened abortion (principal); F17.200 Nicotine dependence, unspecified, uncomplicated; Z79.1 Long term (current) use of non-steroidal anti-inflammatories (NSAID); Z79.899 Other long term (current) drug therapy; Z3A.01 Less than 8 weeks gestation of pregnancy
CPT/HCPCS: 36415; 76801; 76817; 80048; 81001; 84702; 85025; 86850; 86900; 86901

== ENCOUNTER 2019-09-27 13:54 | Emergency (ER) | payer MEDICAID ==
[2019-09-27 15:08] VITALS: BP 112/47
[2019-09-27 16:45] LABS: Basophils % (Auto) 0.5 % (0.0-1.8); Eosinophils # (Auto) 0.1 K/mm3 (0.0-0.4); Eosinophils % (Auto) 1.8 % (0.0-4.3); Hemoglobin 12.7 gm/dl (10.1-14.3); Lymphocytes # (Auto) 1.6 K/mm3 (1.2-5.4); Lymphocytes % (Auto) 34.1 % (13.4-35.0); Mean Corpuscular HGB Conc 33 % (30-34); Mean Corpuscular Volume 89 fl (79-97); Monocytes # (Auto) 0.5 K/mm3 (0.0-0.8); Monocytes % (Auto) 11.1 % (0.0-7.3); Platelet Count 298 K/mm3 (140-440); Red Blood Count 4.26 M/mm3 (3.65-5.03); Red Cell Distribution Width 14.8 % (13.2-15.2)
--- NOTE | 2019-09-27 17:20 | Emergency Department Report ---
ED Recheck HPI - General Chief Complaint: Recheck/Abnormal Lab/Rx Stated Complaint: CHECK HCG LEVEL Time Seen by Provider: 09/27/19 17:18 Source: patient Mode of arrival: Ambulatory Limitations: No Limitations - History of Present Illness Initial Comments: Patient is a 19-year-old -[place] female that comes to the ER today for recheck of her beta quant. She states that the provider told her to come to the ER to get this blood work redone today. Patient has been seen for threatened miscarriage. Patient is having vaginal bleeding. Beta quant as ordered by the ACC in triage is continuing to trend down. - Related Data Home Medications Medication Instructions Recorded Confirmed Last Taken No.137/Iron/Folic Acd 1 each PO DAILY 02/04/19 02/04/19 02/04/19 [[facility] Tablet] Previous Rx's Medication Instructions Recorded Last Taken Type Ferrous Sulfate [Feosol 325 MG tab] 325 mg PO BID #30 tablet 02/05/19 Unknown Rx Ibuprofen [Motrin] 600 mg PO Q8H PRN #30 tablet 02/05/19 Unknown Rx oxyCODONE /ACETAMINOPHEN [Percocet 1 tab PO Q6HR PRN #30 tablet 02/05/19 Unknown Rx 5/325] Amoxicillin [Trimox CAP] 500 mg PO BID 10 Days #20 capsule 08/16/19 Unknown Rx Benzocaine/Mentho [Cepacol X 1 each MM BID #1 packet 08/16/19 Unknown Rx Strength] Acetaminophen [Tylenol] 500 mg PO Q6HR PRN #30 tablet 09/26/19 Unknown Rx Allergies Allergy/AdvReac Type Severity Reaction Status Date / Time No Known Allergies Allergy Verified 09/27/19 15:02 ED Review of Systems ROS: Stated complaint: CHECK HCG LEVEL Other details as noted in HPI Comment: All other systems reviewed and negative ED Past Medical Hx - Past Medical History Previous Medical History?: No Hx Hypertension: No Hx Congestive Heart Failure: No Hx Diabetes: No Hx Deep Vein Thrombosis: No Hx Renal Disease: No Hx Sickle Cell Disease: No Hx Seizures: No Hx Asthma: No Hx COPD: No - Surgical History Past Surgical History?: No - Family History Family history: no significant - Social History Smoking Status: Current Every Day Smoker Substance Use Type: Alcohol - Medications Home Medications: Home Medications Medication Instructions Recorded Confirmed Last Taken Type No.137/Iron/Folic Acd 1 each PO DAILY 02/04/19 02/04/19 02/04/19 History [[facility] Tablet] Ferrous Sulfate [Feosol 325 MG tab] 325 mg PO BID #30 tablet 02/05/19 Unknown Rx Ibuprofen [Motrin] 600 mg PO Q8H PRN #30 tablet 02/05/19 Unknown Rx oxyCODONE /ACETAMINOPHEN [Percocet 1 tab PO Q6HR PRN #30 tablet 02/05/19 Unknown Rx 5/325] Amoxicillin [Trimox CAP] 500 mg PO BID 10 Days #20 capsule 08/16/19 Unknown Rx Benzocaine/Mentho [Cepacol X 1 each MM BID #1 packet 08/16/19 Unknown Rx Strength] Acetaminophen [Tylenol] 500 mg PO Q6HR PRN #30 tablet 09/26/19 Unknown Rx ED Physical Exam - General Limitations: No Limitations General appearance: alert, in no apparent distress - Head Head exam: Present: atraumatic, normocephalic - Eye Eye exam: Present: normal appearance - ENT ENT exam: Present: mucous membranes moist - Neck Neck exam: Present: normal inspection - Respiratory Respiratory exam: Present: normal lung sounds bilaterally. Absent: respiratory distress - Cardiovascular Cardiovascular Exam: Present: regular rate, normal rhythm. Absent: systolic murmur, diastolic murmur, rubs, gallop - GI/Abdominal GI/Abdominal exam: Present: soft, normal bowel sounds - Extremities Exam Extremities exam: Present: normal inspection - Back Exam Back exam: Present: normal inspection - Neurological Exam Neurological exam: Present: alert, oriented X3 - Psychiatric Psychiatric exam: Present: normal affect, normal mood - Skin Skin exam: Present: warm, dry, intact, normal color. Absent: rash ED Course Vital Signs 09/27/19 15:05 Temperature 98.4 F Pulse Rate 65 Respiratory 18 Rate Blood Pressure 112/47 O2 Sat by Pulse 100 Oximetry ED Recheck MDM - Core Measures Measure Exclusions: not indicated - Medical Decision Making Lab Results 09/27/19 09/27/19 Range/Units 15:50 15:50 WBC 4.7 (4.5-11.0) K/mm3 RBC 4.26 (3.65-5.03) M/mm3 Hgb 12.7 (10.1-14.3) gm/dl Hct 38.0 (30.3-42.9) % MCV 89 (79-97) fl MCH 30 (28-32) pg MCHC 33 (30-34) % RDW 14.8 (13.2-15.2) % Plt Count 298 (140-440) K/mm3 Lymph % (Auto) 34.1 (13.4-35.0) % Wharton % (Auto) 11.1 H (0.0-7.3) % Eos % (Auto) 1.8 (0.0-4.3) % Baso % (Auto) 0.5 (0.0-1.8) % Lymph # 1.6 (1.2-5.4) K/mm3 Wharton # 0.5 (0.0-0.8) K/mm3 Eos # 0.1 (0.0-0.4) K/mm3 Baso # 0.0 (0.0-0.1) K/mm3 Seg Neutrophils % 52.5 (40.0-70.0) % Seg Neutrophils # 2.5 (1.8-7.7) K/mm3 HCG, Quant 49.64 H (0-4) mIU/mL Vital Signs 09/27/19 15:05 Temperature 98.4 F Pulse Rate 65 Respiratory 18 Rate Blood Pressure 112/47 O2 Sat by Pulse 100 Oximetry Beta quant trend trending down. Hemoglobin stable. Vital signs stable. No tachycardia or hypotension. No fever. Patient is ambulatory, nontoxic and [id number] on exam in [facility]. Patient has been given her beta quant numbers for the last 2 visits, that were w ithin 48 hours of one another. She is also been given her blood type which is Rh+. Patient has been given referral to [facility]. Patient being discharged home with [facility] follow-up. Patient verbalizes an understanding of discharge plan of care. Critical care attestation.: If time is entered above; I have spent that time in minutes in the direct care of this critically ill patient, excluding procedure time. ED Disposition Clinical Impression: Vaginal bleeding in Disposition: - TO HOME OR SELFCARE Is pt being admited?: No Does the pt Need Aspirin: No Condition: Stable Additional Instructions: call obgyn and make appointment for follow up Referrals: BUCK GRACE MD [Staff Physician] - 3-5 Days Time of Disposition: 17:19
== END 2019-09-27 17:20 | disposition home or self-care (01) ==
LOC: ED 13:54
DX: O46.91 Antepartum hemorrhage, unspecified, first trimester (principal); O99.331 Smoking (tobacco) complicating pregnancy, first trimester; Z3A.00 Weeks of gestation of pregnancy not specified
CPT/HCPCS: 36415; 84702; 85025

== ENCOUNTER 2020-09-16 16:45 | Emergency (ER) | payer MEDICAID ==
[2020-09-16] MEDS ORDERED: MAGNESIUM CITRATE 300 ML ORAL LIQD PO ONE (20:39)
[2020-09-16] MEDS ORDERED: LIDOCAINE 2% UROJECT 10 ML JELLY UR ONE (21:00)
--- NOTE | 2020-09-16 21:49 | Emergency Department Report ---
ED General Adult HPI - General Chief complaint: Rectal Pain Stated complaint: 29WKS SWOLLEN BLOODY HEMORRHOIDS Source: patient Mode of arrival: Ambulatory Limitations: No Limitations - History of Present Illness Initial comments: Patient is a A0 20-year-old -[place]cu[place] female who is approximately 29 weeks gestation who presents to the ED with complaint of acute onset persistent rectal pain with pressure for the last 1 week. Patient also states that he has not had a bowel movement in 5 days. Patient states that the pain is especially worse with movement or whenever she has the urge to have a bowel movement. Patient denies rectal bleeding, vaginal bleeding, abdominal pain, nausea, vomiting, fever, chills, dizziness, syncope or dysuria, urinary frequency and ur gency, chest pain or shortness of breath or diarrhea. MD Complaint: Rectal pain; no bowel movement in 5 days -: Sudden, days(s) (5) Location: buttocks (rectal) Radiation: non-radiation Severity scale (0 -10): 7 Quality: burning, aching, sharp Consistency: constant Improves with: none Worsens with: movement, other (bowel movement) Associated Symptoms: denies other symptoms. denies: confusion, chest pain, cough, diaphoresis, fever/chills, headaches, loss of appetite, nausea/vomiting, seizure, shortness of breath, syncope, weakness, other Treatments Prior to Arrival: none - Related Data Home Medications Medication Instructions Recorded Confirmed Last Taken No.137/Iron/Folic Acd 1 each PO DAILY 02/04/19 02/04/19 02/04/19 [[facility] Tablet] Previous Rx's Medication Instructions Recorded Last Taken Type Ferrous Sulfate [Feosol 325 MG tab] 325 mg PO BID #30 tablet 02/05/19 Unknown Rx Ibuprofen [Motrin] 600 mg PO Q8H PRN #30 tablet 02/05/19 Unknown Rx oxyCODONE /ACETAMINOPHEN [Percocet 1 tab PO Q6HR PRN #30 tablet 02/05/19 Unknown Rx 5/325] Amoxicillin [Trimox CAP] 500 mg PO BID 10 Days #20 capsule 08/16/19 Unknown Rx Benzocaine/Mentho [Cepacol X 1 each MM BID #1 packet 08/16/19 Unknown Rx Strength] Acetaminophen [Tylenol] 500 mg PO Q6HR PRN #30 tablet 09/26/19 Unknown Rx Allergies Allergy/AdvReac Type Severity Reaction Status Date / Time No Known Allergies Allergy Verified 09/27/19 15:02 ED Review of Systems ROS: Stated complaint: 29WKS SWOLLEN BLOODY HEMORRHOIDS Other details as noted in HPI Constitutional: denies: chills, fever Eyes: denies: eye pain, eye discharge, vision change ENT: denies: ear pain, throat pain Respiratory: denies: cough, shortness of breath, wheezing Cardiovascular: denies: chest pain, palpitations Endocrine: no symptoms reported Gastrointestinal: other (rectal pain). denies: abdominal pain, nausea, diarrhea Genitourinary: denies: urgency, dysuria, discharge Musculoskeletal: denies: back pain, joint swelling, arthralgia Skin: denies: rash, lesions Neurological: denies: headache, weakness, paresthesias Psychiatric: denies: anxiety, depression Hematological/Lymphatic: denies: easy bleeding, easy bruising ED Past Medical Hx - Past Medical History Previous Medical History?: No Hx Hypertension: No Hx Congestive Heart Failure: No Hx Diabetes: No Hx Deep Vein Thrombosis: No Hx Renal Disease: No Hx Sickle Cell Disease: No Hx Seizures: No Hx Asthma: No Hx COPD: No - Surgical History Past Surgical History?: Yes Additional Surgical History: - Social History Smoking Status: Current Every Day Smoker Substance Use Type: Alcohol - Medications Home Medications: Home Medications Medication Instructions Recorded Confirmed Last Taken Type No.137/Iron/Folic Acd 1 each PO DAILY 02/04/19 02/04/19 02/04/19 History [[facility] Tablet] Ferrous Sulfate [Feosol 325 MG tab] 325 mg PO BID #30 tablet 02/05/19 Unknown Rx Ibuprofen [Motrin] 600 mg PO Q8H PRN #30 tablet 02/05/19 Unknown Rx oxyCODONE /ACETAMINOPHEN [Percocet 1 tab PO Q6HR PRN #30 tablet 02/05/19 Unknown Rx 5/325] Amoxicillin [Trimox CAP] 500 mg PO BID 10 Days #20 capsule 08/16/19 Unknown Rx Benzocaine/Mentho [Cepacol X 1 each MM BID #1 packet 08/16/19 Unknown Rx Strength] Acetaminophen [Tylenol] 500 mg PO Q6HR PRN #30 tablet 09/26/19 Unknown Rx ED Physical Exam - General Limitations: No Limitations General appearance: alert, in no apparent distress - Head Head exam: Present: atraumatic, normocephalic, normal inspection - Eye Eye exam: Present: normal appearance, PERRL, EOMI Pupils: Present: normal accommodation - ENT ENT exam: Present: normal exam, normal orophraynx, mucous membranes moist, TM's normal bilaterally, normal external ear exam - Neck Neck exam: Present: normal inspection, full ROM - Respiratory Respiratory exam: Present: normal lung sounds bilaterally. Absent: respiratory distress, wheezes, rales, rhonchi, chest wall tenderness, accessory muscle use, decreased breath sounds, prolonged expiratory - Cardiovascular Cardiovascular Exam: Present: regular rate, normal rhythm, normal heart sounds. Absent: systolic murmur, diastolic murmur, rubs, gallop - GI/Abdominal GI/Abdominal exam: Present: soft, normal bowel sounds. Absent: tenderness, guarding, rebound, hyperactive bowel sounds, hypoactive bowel sounds, organomegaly - Rectal Rectal exam: Present: normal rectal tone, fecal impaction (Significant and large hard stool in the rectal vault; no sign of hemorrhoids), tenderness (rectal pain), other (Female provider Karlos Urbano present as the transfer machine operator). Absent: black stool, hemorrhoids - Extremities Exam Extremities exam: Present: normal inspection, full ROM, normal capillary refill - Back Exam Back exam: Present: normal inspection, full ROM. Absent: tenderness, CVA tenderness (R), CVA tenderness (L), muscle spasm, paraspinal tenderness, vertebral tenderness - Neurological Exam Neurological exam: Present: alert, oriented X3, CN II-XII intact, normal gait, reflexes normal - Psychiatric Psychiatric exam: Present: normal affect, normal mood, anxious - Skin Skin exam: Present: warm, dry, intact, normal color. Absent: rash ED Course Vital Signs 09/16/20 17:18 Temperature 98.1 F Pulse Rate 93 H Respiratory 13 Rate Blood Pressure 138/63 O2 Sat by Pulse 100 Oximetry ED Medical Decision Making - Medical Decision Making This is a A0 20-year-old -[place]cu[place] female who is approximately 29 weeks gestation who presents to the ED with complaint of acute onset persistent rectal pain with pressure for the last 1 week. Patient also states that he has not had a bowel movement in 5 days. Patient states that the pain is especially worse with movement or whenever she has the urge to have a bowel movement. In the ED, patient is alert and oriented x3 and is not in any distress but appears to be in significant pain. Rectal exam in the presence of a female provider Ms. Aguayo as the transfer machine operator revealed significant large stool in the rectal vault consistent with constipation. No hemorrhoids identified during the exam. Patient was treated with a laxative in the ED and also given topical lidocaine gel for anesthesia of the rectal vault. Patient was discharged home and advised to increase her fiber intake, oral fluid intake and to follow-up with the [facility] physician in 3 to 5 days for reevaluation. Patient was also advised to take [id number]-dolhbyp stool softeners to enhance her bowel movements. Patient was advised return to the ED immediately if symptoms get worse. - Differential Diagnosis Constipation; Hemorrhoids; anal fissures; Critical care attestation.: If time is entered above; I have spent that time in minutes in the direct care of this critically ill patient, excluding procedure time. ED Disposition Clinical Impression: Anal or rectal pain Constipation Qualifiers: Constipation type: unspecified constipation type Qualified Code(s): K59.00 - Constipation, unspecified Disposition: DC- TO HOME OR SELFCARE Is pt being admited?: No Does the pt Need Aspirin: No Condition: Stable Instructions: Constipation, Adult, [id number] Additional Instructions: Take [id number] stool softeners, drink plenty of fluids, increase your fiber intake and follow-up with your [facility] [employer] [facility] [employer] physician or primary care physician in 5 to 7 days for reevaluation. Return to the ED immediately if symptoms get worse. Referrals: [facility] [Provider Group] - 3-5 Days Time of Disposition: 21:55 Print Language: WELSH
[2020-09-16 21:56] VITALS: BP 138/63
== END 2020-09-16 23:50 | disposition home or self-care (01) ==
LOC: ED 16:45
DX: O26.893 Other specified pregnancy related conditions, third trimester (principal); K59.00 Constipation, unspecified; K62.89 Other specified diseases of anus and rectum; F17.200 Nicotine dependence, unspecified, uncomplicated; Z72.89 Other problems related to lifestyle; Z98.890 Other specified postprocedural states; Z79.899 Other long term (current) drug therapy; Z3A.29 29 weeks gestation of pregnancy
CPT/HCPCS: 99282

== ENCOUNTER 2021-06-19 08:18 | Emergency (ER) | payer MEDICAID ==
[2021-06-19 09:35] LABS: Hematocrit 36.1 % (30.3-42.9); Hemoglobin 11.7 gm/dl (10.1-14.3); Mean Corpuscular HGB Conc 32 % (30-34); Mean Corpuscular Volume 84 fl (79-97); Platelet Count 297 K/mm3 (140-440); Red Cell Distribution Width 15.8 % (13.2-15.2)
[2021-06-19 09:53] LABS: Blood Urea Nitrogen 7 mg/dL (7-17); Calcium 8.8 mg/dL (8.4-10.2); Hemolysis Index 2
[2021-06-19 09:57] LABS: BUN/Creatinine Ratio 10
[2021-06-19] MEDS ORDERED: POTASSIUM CHLORIDE ER 20 MEQ TAB PO ONE (10:14)
[2021-06-19 10:42] LABS: Bilirubin,Urine NEG (Negative); Blood,Urine LG (Negative); Color,Urine Yellow (Yellow); Mucus,Urine FEW /HPF; RBC,Urine > 182.0 /HPF (0.0-6.0); Urobilinogen,Urine < 2.0 mg/dL (<2.0)
[2021-06-19] MEDS ORDERED: SULFAMETHOXAZOLE/TRIMETHOPRIM 800/160MG DS TAB PO ONE (11:21)
--- NOTE | 2021-06-19 11:58 | Emergency Department Report ---
ED Female HPI - General Chief complaint: Vaginal Bleeding Stated complaint: PERIOD BLOOD CLOT/PAIN LT SIDE Time Seen by Provider: 06/19/21 08:27 Source: patient Mode of arrival: Ambulatory Limitations: No Limitations - History of Present Illness Initial comments: Patient is a 21-year-old female that is currently on her menses that is having right lower quadrant pain she states that she called her COMPONENT ENGINEER and they told her to come to the emergency room. She denies concerns for being having a miscarriage. She denies dysuria. She denies any back pain. She denies any nausea vomiting. She denies any diarrhea or constipation. Patient is ambulatory and nontoxic on arrival to the ER. She has no peritoneal signs. MD Complaint: vaginal bleeding -: Sudden, days(s) Severity: moderate Quality: cramping Improves with: none Worsens with: none Are you Now?: No Associated Symptoms: denies other symptoms, vaginal bleeding. denies: vaginal discharge, abdominal pain, nausea/vomiting, fever/chills, headaches, loss of appetite, dysuria, hematuria, rash, seizure, shortness of breath, syncope, weakness - Related Data Home Medications Medication Instructions Recorded Confirmed Last Taken No.137/Iron/Folic Acd 1 each PO DAILY 02/04/19 11/29/20 02/04/19 [[facility] Tablet] Previous Rx's Medication Instructions Recorded Last Taken Type Docusate Sodium [Colace] 100 mg PO BID #60 capsule 12/01/20 Unknown Rx Ferrous Sulfate [Feosol 325 MG tab] 325 mg PO BID #60 tablet 12/01/20 Unknown Rx Ibuprofen [Motrin] 800 mg PO Q8HR PRN #40 tablet 12/01/20 Unknown Rx oxyCODONE /ACETAMINOPHEN [Percocet 2 tab PO Q6HR PRN #40 tablet 12/01/20 Unknown Rx 5/325] Sulfamethoxazole/Trimethoprim 1 each PO BID #10 tablet 06/19/21 Unknown Rx [Bactrim DS TAB] Allergies Allergy/AdvReac Type Severity Reaction Status Date / Time No Known Allergies Allergy Verified 11/30/20 07:01 ED Review of Systems ROS: Stated complaint: PERIOD BLOOD CLOT/PAIN LT SIDE Other details as noted in HPI Comment: All other systems reviewed and negative ED Past Medical Hx - Past Medical History Hx Hypertension: No Hx Heart Attack/AMI: No Hx Congestive Heart Failure: No Hx Diabetes: No Hx Deep Vein Thrombosis: No Hx Liver Disease: No Hx Renal Disease: No Hx Sickle Cell Disease: No Hx Seizures: No Hx Asthma: No Hx COPD: No Hx HIV: No - Surgical History Past Surgical History?: Yes Additional Surgical History: - Family History Family history: no significant - Social History Smoking Status: Never Smoker Substance Use Type: None - Medications Home Medications: Home Medications Medication Instructions Recorded Confirmed Last Taken Type No.137/Iron/Folic Acd 1 each PO DAILY 02/04/19 11/29/20 02/04/19 History [[facility] Tablet] Docusate Sodium [Colace] 100 mg PO BID #60 capsule 12/01/20 Unknown Rx Ferrous Sulfate [Feosol 325 MG tab] 325 mg PO BID #60 tablet 12/01/20 Unknown Rx Ibuprofen [Motrin] 800 mg PO Q8HR PRN #40 tablet 12/01/20 Unknown Rx oxyCODONE /ACETAMINOPHEN [Percocet 2 tab PO Q6HR PRN #40 tablet 12/01/20 Unknown Rx 5/325] Sulfamethoxazole/Trimethoprim 1 each PO BID #10 tablet 06/19/21 Unknown Rx [Bactrim DS TAB] ED Physical Exam - General Limitations: No Limitations General appearance: alert, in no apparent distress - Head Head exam: Present: atraumatic, normocephalic - Eye Eye exam: Present: normal appearance - ENT ENT exam: Present: mucous membranes moist - Neck Neck exam: Present: normal inspection - Respiratory Respiratory exam: Present: normal lung sounds bilaterally. Absent: respiratory distress - Cardiovascular Cardiovascular Exam: Present: regular rate, normal rhythm. Absent: systolic murmur, diastolic murmur, rubs, gallop - GI/Abdominal GI/Abdominal exam: Present: soft, normal bowel sounds - Extremities Exam Extremities exam: Present: normal inspection - Back Exam Back exam: Present: normal inspection - Neurological Exam Neurological exam: Present: alert, oriented X3 - Psychiatric Psychiatric exam: Present: normal affect, normal mood - Skin Skin exam: Present: warm, dry, intact, normal color. Absent: rash ED Course Vital Signs 06/19/21 06/19/21 08:27 13:21 Temperature 98.4 F 97.9 F Pulse Rate 83 64 Respiratory 18 12 Rate Blood Pressure 131/83 118/78 [Right] O2 Sat by Pulse 97 97 Oximetry ED Medical Decision Making - Lab Data Result diagrams: 06/19/21 09:04 06/19/21 09:04 - Radiology Data Radiology results: report reviewed, image reviewed See report - Medical Decision Making Lab Results 06/19/21 06/19/21 06/19/21 Range/Units 09:04 09:04 09:04 WBC 4.4 L (4.5-11.0) K/mm3 RBC 4.30 (3.65-5.03) M/mm3 Hgb 11.7 (10.1-14.3) gm/dl Hct 36.1 (30.3-42.9) % MCV 84 (79-97) fl MCH 27 L (28-32) pg MCHC 32 (30-34) % RDW 15.8 H (13.2-15.2) % Plt Count 297 (140-440) K/mm3 Sodium 138 (137-145) mmol/L Potassium 3.1 L (3.6-5.0) mmol/L Chloride 103.3 (98-107) mmol/L Carbon Dioxide 24 (22-30) mmol/L Anion Gap 14 mmol/L BUN 7 (7-17) mg/dL Creatinine 0.7 (0.6-1.2) mg/dL Estimated GFR > 60 ml/min BUN/Creatinine Ratio 10 % Glucose 90 (65-100) mg/dL Calcium 8.8 (8.4-10.2) mg/dL HCG, Qual Negative (Negative) Urine Color (Yellow) Urine Turbidity (Clear) Urine pH (5.0-7.0) Ur Specific Merino (1.003-1.030) Urine Protein (Negative) mg/dL Urine Glucose (UA) (Negative) mg/dL Urine Ketones (Negative) mg/dL Urine Blood (Negative) Urine Nitrite (Negative) Urine Bilirubin (Negative) Urine Urobilinogen (<2.0) mg/dL Ur Leukocyte Esterase (Negative) Urine WBC (Auto) (0.0-6.0) /HPF Urine RBC (Auto) (0.0-6.0) /HPF U Epithel Cells (Auto) (0-13.0) /HPF Urine Mucus /HPF 06/19/21 Range/Units Unknown WBC (4.5-11.0) K/mm3 RBC (3.65-5.03) M/mm3 Hgb (10.1-14.3) gm/dl Hct (30.3-42.9) % MCV (79-97) fl MCH (28-32) pg MCHC (30-34) % RDW (13.2-15.2) % Plt Count (140-440) K/mm3 Sodium (137-145) mmol/L Potassium (3.6-5.0) mmol/L Chloride (98-107) mmol/L Carbon Dioxide (22-30) mmol/L Anion Gap mmol/L BUN (7-17) mg/dL Creatinine (0.6-1.2) mg/dL Estimated GFR ml/min BUN/Creatinine Ratio % Glucose (65-100) mg/dL Calcium (8.4-10.2) mg/dL HCG, Qual (Negative) Urine Color Yellow (Yellow) Urine Turbidity Cloudy (Clear) Urine pH 6.0 (5.0-7.0) Ur Specific Merino 1.019 (1.003-1.030) Urine Protein 100 mg/dl (Negative) mg/dL Urine Glucose (UA) Neg (Negative) mg/dL Urine Ketones Neg (Negative) mg/dL Urine Blood Lg (Negative) Urine Nitrite Neg (Negative) Urine Bilirubin Neg (Negative) Urine Urobilinogen < 2.0 (<2.0) mg/dL Ur Leukocyte Esterase Tr (Negative) Urine WBC (Auto) 9.0 H (0.0-6.0) /HPF Urine RBC (Auto) > 182.0 (0.0-6.0) /HPF U Epithel Cells (Auto) 2.0 (0-13.0) /HPF Urine Mucus Few /HPF Vital Signs 06/19/21 08:27 Temperature 98.4 F Pulse Rate 83 Respiratory 18 Rate Blood Pressure 131/83 [Right] O2 Sat by Pulse 97 Oximetry Labs noted. UA noted. U negative Ultrasound noted. Note patient is on menses Findings discussed with patient. She is being discharged home with discharge plan of care including Bactrim for her UTI. She is to follow-up with [facility]ONENT ENGINEER. Diet and activity as tolerated. Patient verbalizes understanding of discharge plan of care. On discharge patient is ambulatory nontoxic and [id number]-hbwoedslo. She is taking p.o. - Differential Diagnosis Rule out , miscarriage, UTI, dysmenorrhea, ovarian cyst Critical care attestation.: If time is entered above; I have spent that time in minutes in the direct care of this critically ill patient, excluding procedure time. ED Disposition Clinical Impression: Menses painful UTI (urinary tract infection) Qualifiers: Urinary tract infection type: site unspecified Disposition: HOME / SELF CARE / HOMELESS Is pt being admited?: No Does the pt Need Aspirin: No Condition: Stable Instructions: Urinary Tract Infection, Adult, [id number] Additional Instructions: med as ordered today follow up with obgyn or pcp if pain persists referrals below motrin or tylenol for pain Prescriptions: Sulfamethoxazole/Trimethoprim [Bactrim DS TAB] 1 each PO BID #10 tablet Referrals: MG DODSON MD [Primary Care Provider] - 3-5 Days Time of Disposition: 13:02
--- NOTE | 2021-06-19 12:02 | Ultrasound Report ---
ULTRASOUND PELVIS INDICATION / CLINICAL INFORMATION: PAIN. TECHNIQUE: Transabdominal and Transvaginal. Duplex Color Doppler used: Yes. COMPARISON: None available FINDINGS: UTERUS: Present. - Appearance (if present): No significant abnormality. - Size in cm (if present): 8.1 x 4.8 x 5.6. - Endometrial Complex (if present): No significant abnormality.. Thickness in cm (if measured) = 0.64 - Mass lesions: None. - Additional findings: None. RIGHT ADNEXA: No significant ovarian cyst or mass. Normal color Doppler blood flow. LEFT ADNEXA: No significant ovarian cyst or mass. Normal color Doppler blood flow. URINARY BLADDER: No significant abnormality. FREE FLUID: Mild free fluid in the pelvic cul-de-sac ADDITIONAL FINDINGS: None. IMPRESSION: 1. Mild free fluid in the pelvic cul-de-sac. Uterus and ovaries appear normal for age. Signer Name: Lex Mccann MD Signed: 06/19/2021 11:57 AM Workstation Name: [id number]
[2021-06-19 13:22] VITALS: BP 118/78
== END 2021-06-19 13:23 | disposition home or self-care (01) ==
LOC: ED 08:18
DX: N94.6 Dysmenorrhea, unspecified (principal); N39.0 Urinary tract infection, site not specified; Z98.890 Other specified postprocedural states
CPT/HCPCS: 36415; 76830; 76856; 80048; 81001; 84703; 85027; 87086; 99284

== ENCOUNTER 2021-12-02 09:44 | Emergency (ER) | payer MEDICAID ==
[2021-12-02 09:57] VITALS: BP 145/86
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
[2021-12-02 15:48] LABS: Basophils % (Auto) 0.5 % (0.0-1.8); Eosinophils % (Auto) 0.9 % (0.0-4.3); Hematocrit 39.5 % (30.3-42.9); Lymphocytes % (Auto) 44.5 % (13.4-35.0); Mean Corpuscular HGB Conc 33 % (30-34); Mean Corpuscular Volume 85 fl (79-97); Monocytes # (Auto) 0.5 K/mm3 (0.0-0.8); Monocytes % (Auto) 10.7 % (0.0-7.3); Platelet Count 308 K/mm3 (140-440); Red Blood Count 4.64 M/mm3 (3.65-5.03); Red Cell Distribution Width 15.6 % (13.2-15.2)
--- NOTE | 2021-12-02 16:54 | XRay Report ---
CHEST 2 VIEWS INDICATION / CLINICAL INFORMATION: SOB. COMPARISON: None available. FINDINGS: SUPPORT DEVICES: None. HEART / MEDIASTINUM: No significant abnormality. LUNGS / PLEURA: No significant pulmonary or pleural abnormality. No pneumothorax. ADDITIONAL FINDINGS: No significant additional findings. IMPRESSION: 1. No acute findings. Signer Name: Ta Leung MD Signed: 12/02/2021 4:50 PM Workstation Name: [id number]
[2021-12-02 16:59] LABS: Amphetamine Screen,Urine Negative; Benzodiazepines Screen,Urine Negative; Cocaine Screen,Urine Negative; Methadone Screen,Urine Negative; Opiate Screen,Urine Negative
[2021-12-02 17:01] LABS: BUN/Creatinine Ratio 9; Blood Urea Nitrogen 7 mg/dL (7-17); Calcium 9.4 mg/dL (8.4-10.2); Hemolysis Index 8
[2021-12-02 17:06] LABS: Mucus,Urine 3+ /HPF
[2021-12-02 17:17] LABS: Color,Urine Yellow (Yellow)
[2021-12-02 17:37] LABS: Free T4 (Free Thyroxine) 1.23 ng/dL (0.76-1.46)
[2021-12-02 18:27] LABS: Cannabinoid Screen,Urine Positive
--- NOTE | 2021-12-04 09:44 | Electrocardiograph Report ---
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
== END 2021-12-02 18:11 | disposition left against medical advice (07) ==
LOC: ED 09:44
DX: F41.9 Anxiety disorder, unspecified (principal); Z98.890 Other specified postprocedural states; Z79.899 Other long term (current) drug therapy
CPT/HCPCS: 36415; 71046; 80048; 80307; 81001; 84439; 84443; 84484; 84703; 85025; 85379; 93005; 99283

== ENCOUNTER 2021-12-02 20:43 | Emergency (ER) | payer MEDICAID ==
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
[2021-12-03 06:51] VITALS: BP 136/89
== END 2021-12-03 11:01 | disposition home or self-care (01) ==
LOC: ED 20:43
DX: F41.9 Anxiety disorder, unspecified (principal)
CPT/HCPCS: 99282